=== PATIENT | female | born 1945 | race Caucasian/White ===

== ENCOUNTER 2022-07-08 09:57 | Outpatient (CLI) | payer MEDICARE, SELFPAY ==
[2022-07-08 13:21] LABS: Albumin* 4.6 g/dL (3.3-5.0); Chloride* 107 mmol/L (96-114)
[2022-07-08 13:22] LABS: Potassium* 4.4 mmol/L (3.6-5.1); Sodium* 139 mmol/L (135-149)
[2022-07-08 13:23] LABS: Cholesterol* 202 mg/dL (90-199)
[2022-07-08 13:24] LABS: Alanine Aminotransferase* 28 U/L (4-35); Alkaline Phosphatase* 103 U/L (40-150); Aspartate Amino Transferase* 33 U/L (12-35); Bilirubin Total* 0.4 mg/dL (0.1-1.5); Blood Urea Nitrogen* 36 mg/dL (7-30); Carbon Dioxide* 24 mmol/L (20-32); Creatinine* 1.2 mg/dL (0.5-1.5); Estimated Glomerular Filt Rate 47 ml/min; Glucose* 94 mg/dL (60-115); Total Protein* 7.1 g/dL (6.0-8.3); Triglycerides* 93 mg/dL (40-149)
[2022-07-08 13:25] LABS: HDL Cholesterol* 91 mg/dL (>=50); LDL Cholesterol Calculated 92 mg/dL (<100); Magnesium* 1.8 mg/dL (1.5-2.6)
== END 2022-07-08 09:58 | disposition home or self-care (01) ==
PROVIDERS: PCP Family Medicine; Visit Provider Family Medicine
DX: E11.9 Type 2 diabetes mellitus without complications (principal); E03.9 Hypothyroidism, unspecified; E78.5 Hyperlipidemia, unspecified; N18.30 Chronic kidney disease, stage 3 unspecified; Z79.4 Long term (current) use of insulin; I10 Essential (primary) hypertension
CPT/HCPCS: 80053; 80061; 82043; 82570; 83735; 84443

== ENCOUNTER 2022-07-09 07:35 | Outpatient (CLI) | payer MEDICARE, SELFPAY ==
[2022-07-09 13:40] LABS: Creatinine Urine 114.7 mg/dL
[2022-07-09 13:44] LABS: Microalbumin Creatinine Ratio 30 mg/g (0-30); Microalbumin Urine 4 mg/dL
== END 2022-07-09 07:36 | disposition home or self-care (01) ==
LOC: FRMREF 07:36
PROVIDERS: PCP Family Medicine; Visit Provider Family Medicine
DX: E11.9 Type 2 diabetes mellitus without complications (principal); N18.30 Chronic kidney disease, stage 3 unspecified; E03.9 Hypothyroidism, unspecified; E78.5 Hyperlipidemia, unspecified; Z79.4 Long term (current) use of insulin
CPT/HCPCS: 82043; 82570

== ENCOUNTER 2023-01-28 09:08 | Outpatient (CLI) | payer MEDICARE, SELFPAY | END 2023-01-28 09:09 | disposition home or self-care (01) | LOC: NFLDREF 01-30 09:06 | PROVIDERS: PCP Family Medicine; Referring Provider Family Medicine; Visit Provider Family Medicine | DX: E03.9 Hypothyroidism, unspecified (principal); E11.9 Type 2 diabetes mellitus without complications; E78.5 Hyperlipidemia, unspecified; N18.30 Chronic kidney disease, stage 3 unspecified; R53.83 Other fatigue; Z79.4 Long term (current) use of insulin | CPT/HCPCS: 80053; 80061; 82043; 82306; 82570; 84443 ==

== ENCOUNTER 2023-10-28 09:51 | Outpatient (CLI) | payer MEDICARE, SELFPAY | END 2023-10-28 09:52 | disposition home or self-care (01) | PROVIDERS: PCP Family Medicine; Visit Provider Family Medicine | DX: E03.9 Hypothyroidism, unspecified (principal); N18.30 Chronic kidney disease, stage 3 unspecified; E78.5 Hyperlipidemia, unspecified; E11.9 Type 2 diabetes mellitus without complications; Z11.59 Encounter for screening for other viral diseases; Z13.1 Encounter for screening for diabetes mellitus; Z13.6 Encounter for screening for cardiovascular disorders; R82.90 Unspecified abnormal findings in urine | CPT/HCPCS: 80053; 80061; 82043; 82570; 84443; 86803; 87086; 87186 ==

== ENCOUNTER 2024-01-19 13:17 | Outpatient (CLI) | payer MEDICARE, SELFPAY ==
--- NOTE | 2024-01-19 13:20 | MM_ITS ---
Patient: JOHN RAMOS Facility:?[facility] Patient ID:?[id number] Site Patient ID:?[id number] Site :?[id number] Study:?XRay-Breast Bilateral 3D W/CAD-01/19/2024 1:40:31 PM Ordering Physician:Adia Hook Final Report: BILATERAL SCREENING MAMMOGRAM WITH COMPUTER-AIDED DETECTION AND TOMOSYNTHESIS TECHNIQUE: CC and MLO views were obtained. These mammographic images have been obtained using full-field digital technique. These mammographic images were interpreted with the benefit of computer-aided detection. Breast Tomosynthesis was used in this interpretation. COMPARISON FILM: 12/02/21, 06/16/18, 12/31/16. FINDINGS: There are scattered areas of fibroglandular density IMPRESSION: There is no radiographic evidence for malignancy. ASSESSMENT: BI-RADS Category 2: Benign RECOMMENDATION: Routine screening mammogram in 1 year. A lay language report of this examination will be provided to the patient. Liban Jacob M.D. Diagnostic Radiologist [email or web address] AALIYAH/brie Transcribed: 2:10 p.mManuel baird/Dictated by: Liban Jacob MD @ 01/20/2024 12:33:00 PM Signed by:?Liban Jacob MD @01/20/2024 2:28:43 PM (Electronic Signature)
--- NOTE | 2024-01-19 14:00 | XR_ITS ---
Patient: JOHN RAMOS Facility:?[facility] Patient ID:?[id number] Site Patient ID:?[id number]. Site :?[id number] Study:?DEXA-Bone Density -01/19/2024 2:11:09 PM Ordering Physician:SEA Final Report: DXA BONE MINERAL DENSITY STUDY Reason for exam: Osteopenia. Current height (in): 64. Weight (lb): 123. Menopause age: 47. Ethnicity: White. 1. Have you had a previous hip or vertebral fracture? No. 2. Have you had any fractures during your adult life which did not result from significant trauma (e.g., auto accident)? No. 3. Did either of your parents have a hip fracture? No. 4. Do you smoke? No. 5. Have you ever taken Glucocorticoids? No. 6. Do you have rheumatoid arthritis? No. 7. Do you have secondary osteoporosis? No. 8. Do you drink 3 or more alcoholic drinks per day? No. 9. Are you being treated for osteoporosis? No. 10. Have you ever taken any of the following medications: Actonel, Evista, Fosamax, Miacalcin, Reclast, Boniva, Forteo, HRT (i.e., estrogen/hormone therapy), Protelos, Prolia, Vitamin D, Calcium, other ? please specify. ANSWER: Yes, Vitamin D and calcium. 11. Do you have any of the following medical conditions: Anorexia or bulimia, asthma or emphysema, end stage renal disease, hyperparathyroidism, any seizure disorders, cancer, inflammatory bowel diseases, hysterectomy, other ? please specify. ANSWER: No. 12. What was your maximum height (inches)? 65. 13. Do you perform weight bearing exercise regularly? Yes. 14. Do you regularly consume dairy products? Yes. 15. Do you drink caffeinated beverages? Yes. 16. At what age did your period start? 14. 17. Are you premenopausal? No. 18. How many full-term pregnancies have you had? 3. 19. Have you ever missed your period for more than 6 months in a row (not including or menopause)? No. TECHNIQUE: Bone mineral density study was performed using the [employer]. FINDINGS: The results of the study expressed as bone mineral density (BMD) are as follows: Lumbar spine L1 to L2: BMD: 1.109 g/cm2. T-score: 1.2. Z-score: 3.7 Neck Left: BMD: 0.615 g/cm2. T-score: -2.1. Z-score: 0.2 Right: BMD: 0.601 g/cm2. T-score: -2.2. Z-score: 0.0 Total Left: BMD: 0.713 g/cm2. T-score: -1.9. Z-score: 0.1 Right: BMD: 0.740 g/cm2. T-score: -1.7. Z-score: 0.4 IMPRESSION: Osteopenia. *Comparison exams done prior to 03/2020 were performed on different unit, [employer]. COMPARISON: Compared with scan of 11/12/2021, the bone mineral density has increased by 10.4 percent at the spine and increased by 4.0 percent at the hip. FRAX 10-year Fracture Risk Major Osteoporotic Fracture: 14% Hip Fracture: 4.5% Reported Risk Factors: [place] () Neck BMD=0.601, BMI=21.1 Liban Jacob M.D. Diagnostic Radiologist [email or web address] AALIYAH/brie D& Transcribed: 1:59 p.mManeul baird/Dictated by: Liban Jacob MD @ 01/20/2024 9:57:00 AM Signed by:?Liban Jacob MD @01/20/2024 2:28:39 PM (Electronic Signature)
== END 2024-01-19 13:18 | disposition home or self-care (01) ==
LOC: MAMMO 13:17
PROVIDERS: PCP Family Medicine; Visit Provider Family Medicine
DX: Z12.31 Encounter for screening mammogram for malignant neoplasm of breast (principal); M85.80 Other specified disorders of bone density and structure, unspecified site; M85.88 Other specified disorders of bone density and structure, other site
CPT/HCPCS: 77063; 77067; 77080

== ENCOUNTER 2024-02-29 11:13 | Outpatient (CLI) | payer MEDICARE, SELFPAY | END 2024-02-29 11:14 | disposition home or self-care (01) | PROVIDERS: PCP Family Medicine; Visit Provider Family Medicine | DX: E03.9 Hypothyroidism, unspecified (principal); E11.22 Type 2 diabetes mellitus with diabetic chronic kidney disease; N18.30 Chronic kidney disease, stage 3 unspecified; E87.29 Other acidosis; Z79.4 Long term (current) use of insulin | CPT/HCPCS: 80053; 83735; 84100; 84439; 84443 ==